=== PATIENT | male | born 2000 | race African-American/Black ===

== ENCOUNTER 2021-07-14 11:10 | Emergency (ER) | payer OTHER, SELFPAY ==
[2021-07-14 11:11] VITALS: BP 122/55; PULSE 59; RESP 16; TEMP 37.4; O2SAT 99; BMI 44.3
--- NOTE | 2021-07-14 11:37 | EKG12_ITS ---
Test Reason : Blood Pressure : / mmHG Vent. Rate : 052 BPM Atrial Rate : 052 BPM P-R Int : 140 ms QRS Dur : 094 ms QT Int : 378 ms P-R-T Axes : 000 083 007 degrees QTc Int : 351 ms Sinus bradycardia with sinus arrhythmia Abnormal ECG Confirmed by DANIELLE GRANGER MD ([id number]), editorial intern DEANDRE BROWNE ([id number]) on 07/20/2021 10:58:04 AM Referred By: PRECIOUS Confirmed By:DANIELLE GRANGER MD
--- NOTE | 2021-07-14 11:45 | RAD_ITS ---
STUDY: X-RAY CHEST REASON FOR EXAM: Male, 21 years old. cough TECHNIQUE: Single AP portable view of the chest. COMPARISON: None. FINDINGS: The lungs are clear and expanded. There is no demonstrated pleural abnormality. Normal size heart. Normal mediastinum and catrachito. Normal visualized pulmonary arteries. Normal visualized aortic arch and descending thoracic aorta. Normal visualized thoracic spine. Normal visualized ribs, clavicles, and shoulders. There is no demonstrated abnormality of the visualized soft tissue structures of the upper abdomen. RAD/Chest 1 View (Portable) IMPRESSION: Normal x-ray examination of the chest. Electronically Signed: Ramon Coyle MD at 12:01 EST Tel , Service support ,
[2021-07-14 12:42] LABS: Absolute Lymphocyte Count 1.84 X10^3/uL (0.83-4.51); Absolute Neutrophil Count 3.7 X10^3/uL (2.0-7.7); Basophil# 0.03 X10^3/uL; Basophil% 0.5 % (0-1); Differential Indicated SCAN CRITERIA MET; Eosinophil# 0.22 X10^3/uL; Eosinophils% 3.6 % (0-5); Hematocrit 42.9 % (40-54); Hemoglobin 14.7 g/dL (13.0-16.5); Lymphocyte # 1.84 X10^3/ul (0.83-4.51); Lymphocyte % 29.7 % (19-41); Mean Corp Hgb Conc 34.3 g/dL (32-36); Mean Corpuscular Hgb 30.2 pg (27.0-32.0); Mean Corpuscular Volume 88.3 fL (80-94); Mean Platelet Vol. 11.2 fl (6.2-12.0); Monocyte# 0.43 X10^3/uL; Monocyte% 6.9 % (0-10); NRBC Flagged by Analyzer 0 % (0-5); Neutrophil # 3.65 X10^3/uL (2.7-7.7); POSITIVE MORPHOLOGY YES; Platelet Count 204 K/mm3 (150-450); RBC Distribution Width CV 13.6 % (11.6-14.6); RBC Distribution Width SD 44.3 fl (35.1-43.9); Red Blood Count 4.86 M/mm3 (4.6-6.2); White Blood Count 6.2 K/mm3 (4.4-11.0)
[2021-07-14 12:53] LABS: D-Dimer Quantitative (DVT/PE) <= 0.27 FEU/ug/m (0.27-0.49)
[2021-07-14 13:15] VITALS: O2SAT 100
[2021-07-14 13:40] LABS: Anion Gap 6 (5-15); BUN 9 mg/dL (7-18); BUN/Creat Ratio 10.4 RATIO (10-20); Calcium,Total 9.3 mg/dL (8.5-10.1); Chloride 109 mmol/L (98-107); Creatinine, Serum 0.87 mg/dL (0.70-1.30); EST Glomerular Filtration Rate 116 mL/min (>60); Est Glom Filt Rate - Afr Amer 140 mL/min (>60); Estimated Creatinine Clearance 123.46 ml/min; Glucose 78 mg/dL (74-106); Sodium Level 142 mmol/L (136-145)
--- NOTE | 2021-07-14 13:48 | ED.VIS.DYS ---
HPI History of Present Illness Chief Complaint: Shortness of Breath Narrative Narrative: Patient presenting for evaluation secondary to shortness of breath. Patient is otherwise healthy, reports that he is Covid recovered, as he had it earlier this month. He reports that he feels as if currently he has a inability to fully take a deep breath. Patient denies any new onset of fevers, chills, cough, nausea, vomiting, diarrhea. Denies any hemoptysis. Denies any asymmetric leg swelling history of DVT or PE. He simply states that he feels dyspneic and that he has not yet returned to his normal respiratory status. Review of systems otherwise negative. PFSH PFS Home Medications NK 07/14/21 [History Last Taken Unknown] Allergy/AdvReac Type Severity Reaction Status Date / Time No Known Allergies Allergy Verified 07/14/21 12:30 Surgical History H/O oral surgery Social History Smoking Status: Current every day smoker tobacco type: e-cigarettes ROS ROS ED Constitutional Constitutional ED: Denies chills or fever(s) ENT ENT ED: Denies rhinorrhea Cardiovascular Cardiovascular: Denies chest pain Respiratory/Chest Respiratory/Chest: Reports dyspnea Gastrointestinal Gastrointestinal: Denies abdominal pain, diarrhea, nausea or vomiting Genitourinary Genitourinary ED: Denies dysuria or hematuria Musculoskeletal Musculoskeletal: Denies back pain Integumentary Denies rash Neurologic Neurologic: Denies paresthesias or weakness Psychiatric Psychiatric: Denies depression Endocrine Endocrinology: Denies fatigue Allergic/Immunologic Allergic/Immunologic ED: Denies urticaria EXAM Physical Exam Const Vital Signs: 07/14/21 11:11 07/14/21 12:41 07/14/21 13:15 Temperature 99.4 F H Temperature Source Temporal Pulse Rate 59 L Respiratory Rate 16 Respiratory Effort Normal Non-Labored Respiratory Depth Normal Respiratory Pattern Normal Blood Pressure 122/55 H Blood Pressure Mean 77 Pulse Ox 99 100 Oxygen Delivery Method Room Air Room Air Positive well nourished and well developed General Appearance ED: well developed and NAD HEENT Reports moist mucous membranes Negative for trauma or tenderness Eyes EOMs intact bilaterally Neck no lymphadenopathy, supple and no JVD Chest Wall inspection of chest normal Resp normal respiratory effort and clear to auscultation bilaterally Cardio regular rate, regular rhythm, no murmurs and peripheral pulses 2+ throughout GI normal to inspection, nondistended, normoactive bowel sounds, non-tender and no masses Palpation: soft Back/Spine normal to inspection Extremity normal to inspection General Extremety ED: Negative for tenderness Neuro oriented x3 and no sensory deficits noted Sensorium / Orientation: alert Motor Exam: strength 5/5 throughout Psych mental status grossly normal Skin no rashes or lesions noted MDM MDM MDM Narrative Medical decision making narrative: Patient presented for evaluation secondary to shortness of breath status post coronavirus. An EKG was obtained showed normal sinus rhythm with early repole. Chest x-ray by my personal review as well as radiology is negative. D-dimer noted to be negative. CBC chemistry were found to be unremarkable. Patient likely has symptoms from recovering from coronavirus, he was given reassurance he has normal stable vitals and I feel that further work-up is indicated. Patient was discharged in stable condition. Lab Data Labs: Laboratory Results - last 24 hr 07/14/21 07/14/21 07/14/21 12:30 12:30 12:30 WBC 6.2 RBC 4.86 Hgb 14.7 Hct 42.9 MCV 88.3 MCH 30.2 MCHC 34.3 RDW Std Deviation 44.3 H RDW Coeff of Peace 13.6 Plt Count 204 MPV 11.2 Immature Gran % (Auto) 0.300 Neut % (Auto) 59.0 Lymph % (Auto) 29.7 Saunders % (Auto) 6.9 Eos % (Auto) 3.6 Baso % (Auto) 0.5 Absolute Neuts (auto) 3.7 Absolute Lymphs (auto) 1.84 Nucleated RBC % 0 D-Dimer Quant (PE/DVT) <= 0.27 Sodium Cancelled Potassium Cancelled Chloride Cancelled Carbon Dioxide Cancelled Anion Gap Cancelled BUN Cancelled Creatinine Cancelled Estim Creat Clear Calc Cancelled Est GFR (MDRD) Af Amer Cancelled Est GFR (MDRD) Non-Af Cancelled BUN/Creatinine Ratio Cancelled Glucose Cancelled Calcium Cancelled 07/14/21 13:10 WBC RBC Hgb Hct MCV MCH MCHC RDW Std Deviation RDW Coeff of Peace Plt Count MPV Immature Gran % (Auto) Neut % (Auto) Lymph % (Auto) Saunders % (Auto) Eos % (Auto) Baso % (Auto) Absolute Neuts (auto) Absolute Lymphs (auto) Nucleated RBC % D-Dimer Quant (PE/DVT) Sodium 142 Potassium 4.0 Chloride 109 H Carbon Dioxide 27.0 Anion Gap 6 BUN 9 Creatinine 0.87 Estim Creat Clear Calc 123.46 Est GFR (MDRD) Af Amer 140 Est GFR (MDRD) Non-Af 116 BUN/Creatinine Ratio 10.4 Glucose 78 Calcium 9.3 Radiography Diagnostic Testing: Clinical Impression(s) from Imaging Studies Chest X-Ray 07/14/21 11:45 IMPRESSION: Normal x-ray examination of the chest. Electronically Signed: Ramon Coyle MD at 12:01 EST Tel , Service support , Discharge Plan Triage Chief Complaint: Shortness of Breath ED Provider: Guido Crouch Dx/Rx/DC Orders Clinical Impression: Dyspnea Instructions: ED Dyspnea Prescriptions: No Action NK RF: 0 Primary Care Provider: Care Physician,No Primary Referrals: Care Physician,No Primary [Primary Care Provider] - Activity Restrictions/Additional Instructions: Follow-up with your PCP as needed Disposition Disposition: Home, Self Care
== END 2021-07-14 14:04 | disposition home or self-care (01) ==
PROVIDERS: Emergency Provider Emergency Medicine
DX: R06.02 Shortness of breath (principal); Z86.16 Personal history of COVID-19; F17.290 Nicotine dependence, other tobacco product, uncomplicated
CPT/HCPCS: 71045; 80048; 85025; 85379; 93005; 99283; A4216